=== PATIENT | female | born 1980 | race Two or more races ===

== ENCOUNTER 2023-07-18 14:35 | Emergency (ER) | payer OTHER ==
[~2023-07-18] VITALS: Ht 154.9 cm; Wt 56.7 kg
[~2023-07-18 14:35] MED LIST: ANAPROX275 MG PO
== END 2023-07-18 19:33 | disposition home or self-care (01) ==
LOC: ER 14:35
DX: S09.8XXA Other specified injuries of head, initial encounter (principal); V43.52XA Car driver injured in collision with other type car in traffic accident, initial encounter; Y93.89 Activity, other specified; Y92.413 State road as the place of occurrence of the external cause; S13.4XXA Sprain of ligaments of cervical spine, initial encounter; Z91.040 Latex allergy status